=== PATIENT | female | born 1985 | race Two or more races ===

== ENCOUNTER 2019-01-23 19:02 | Emergency (ER) | payer MEDICAID, OTHER ==
[~2019-01-23] VITALS: Ht 157.5 cm; Wt 94.8 kg
[2019-01-23 19:50] LABS: Eosinophils # (auto) 0.4 uL; Hemoglobin 11.5 g/dL (12.2-16.2); Mean Corpuscular Hemoglobin 25.2 pg (28.0-32.0); Monocytes # (auto) 0.5 uL; Red Cell Distribution Width 15.9 % (11.8-14.3)
[2019-01-23 19:51] LABS: Basophils # (auto) 0 uL; Basophils % (auto) 0.5 % (0.0-2.0); Eosinophils % (auto) 5.2 % (0.0-7.0); Hematocrit 35.9 % (36.0-46.0); Lymphocytes # (auto) 1.7 uL; Lymphocytes % (auto) 22.7 % (10.0-50.0); Mean Corpuscular Volume 78.8 fL (80.0-100.0); Monocytes % (auto) 6.4 % (0.0-12.0); Neutrophils # (auto) 4.7 uL; Neutrophils % (auto) 65.2 % (37.0-80.0); Platelet Count (auto) 292 10^3/uL (140-450); Red Blood Cells 4.56 10^6/uL (4.0-5.20); White Blood Cell 7.3 10^3/uL (4.4-10.8)
[2019-01-23 20:03] LABS: INR 0.96 (0.9-1.15); Partial Thromboplastin Time 25.4 sec (23.78-33.04); Prothrombin Time 10.3 sec (9.27-12.13)
[2019-01-23 20:11] LABS: Calcium 9.6 mg/dL (8.5-10.1); Potassium 3.6 mmol/L (3.5-5.1)
[2019-01-23 20:14] LABS: BUN/Creatinine Ratio 11.7; Bilirubin, Total 0.2 mg/dL (0.2-1.0); Total Protein 6.4 g/dL (6.4-8.2)
[2019-01-23] MEDS ORDERED: ACETAMINOPHEN 500 MG TAB PO ONE (20:15)
[2019-01-23 23:26] VITALS: BP 110/66
[2019-01-24] MEDS ORDERED: ACETAMINOPHEN 325 MG TAB PO ONE (00:15)
== END 2019-01-24 00:48 | disposition home or self-care (01) ==
LOC: ER 19:02 → EDBD 19:02 → ER 01-24 00:48
DX: O20.0 Threatened abortion (principal); Z3A.11 11 weeks gestation of pregnancy
CPT/HCPCS: 36415; 76801; 76817; 80053; 84702; 85025; 85610; 85730; 86850; 86900; 86901

== ENCOUNTER → 2019-02-15 | Outpatient (CLI) | payer MEDICAID, BC ==
[~2019-02-15] MED LIST: PREN-153 OR
[2019-02-15 12:54] LABS: Basophils # (auto) 0 uL; Basophils % (auto) 0.3 % (0.0-2.0); Mean Corpuscular Hemoglobin 23.6 pg (28.0-32.0); Mean Corpuscular Hgb Conc. 31.6 g/dL (32.0-36.0); Neutrophils # (auto) 4.7 uL; White Blood Cell 6.8 10^3/uL (4.4-10.8)
[2019-02-15 12:56] LABS: Eosinophils # (auto) 0.2 uL; Eosinophils % (auto) 3.2 % (0.0-7.0); Hematocrit 28.7 % (36.0-46.0); Hemoglobin 9.1 g/dL (12.2-16.2); Lymphocytes # (auto) 1.3 uL; Lymphocytes % (auto) 19.8 % (10.0-50.0); Mean Corpuscular Volume 74.4 fL (80.0-100.0); Monocytes # (auto) 0.5 uL; Neutrophils % (auto) 69.7 % (37.0-80.0); Platelet Count (auto) 313 10^3/uL (140-450); Red Blood Cells 3.86 10^6/uL (4.0-5.20); Red Cell Distribution Width 15.9 % (11.8-14.3)
[2019-02-15 13:16] LABS: Alcohol, Urine < 3.0 mg/dL (0-5); Amphetamine Screen, Urine NEGATIVE (NEGATIVE); Barbiturate Scree,Urine NEGATIVE (NEGATIVE); Benzodiazephine Screen, Urine NEGATIVE (NEGATIVE); Cannabinoid Screen, Urine NEGATIVE (NEGATIVE); Cocaine Screen, Urine NEGATIVE (NEGATIVE); Opiate Scree,Urine NEGATIVE (NEGATIVE); Phencyclidine Screen, Urine NEGATIVE (NEGATIVE)
[2019-02-16 05:06] LABS: RPR Non Reactive (Non Reactive)
== END | disposition home or self-care (01) ==
LOC: LAB 12:21
PROVIDERS: ATTEND Specialist
DX: O23.42 Unspecified infection of urinary tract in pregnancy, second trimester (principal); Z3A.16 16 weeks gestation of pregnancy; Z72.51 High risk heterosexual behavior; Z20.2 Contact with and (suspected) exposure to infections with a predominantly sexual mode of transmission
CPT/HCPCS: 36415; 80307; 83036; 84702; 85025; 86592; 86703; 86762; 86850; 86900; 86901; 87086; 87340